=== PATIENT | female | born 1995 | race African-American/Black ===

== ENCOUNTER 2021-07-08 22:58 | Emergency (ER) | payer SELFPAY ==
[2021-07-09] MEDS ORDERED: Lidocaine Viscous Sol 2% 15 ml UD Cup ONE (00:08)
[2021-07-09] MEDS ORDERED: Milk Of Magnesia 30 ML UDCUP ONE (00:09)
[2021-07-09 00:11] LABS: #Eosinphils 0.1 10x3/uL (0.0-0.5); #Monocytes 0.6 10x3/uL (0.0-1.1); %Basophils 0.4 % (0.0-2.0); %Lymphocytes 39.1 % (18.0-47.0); %Monocytes 13.3 % (0.0-10.0); Hemoglobin 13.1 g/dL (12.0-15.5); Mean Corpuscular HGB CONC 33.7 g/dL (32.0-36.0); Mean Corpuscular Volume 92.2 fl (81.6-98.3); Mean Platelet Volume 9.9 fl (7.4-10.4); Platelet Count 208 10x3/uL (150-450); RBC Distribution Width 11.9 % (11.5-14.5); Red Blood Cell (RBC) Count 4.22 10x6/uL (3.90-5.03); White Blood Cell (WBC) Count 4.5 10x3/uL (3.5-10.5)
[2021-07-09] MEDS ORDERED: Ondansetron PF 4 MG/2 ML Vial ONE (00:12)
[2021-07-09] MEDS ORDERED: Pantoprazole 40 MG VIAL ONE (00:12)
[2021-07-09 00:21] LABS: BHCG - Serum Negative (NEGATIVE); Pregs Control Background? CLEAR/WHITE (CLR/WHITE); Pregs Control Bar Appear? YES (CONTROL BAR)
[2021-07-09 00:28] LABS: ALT (SGPT) 91 U/L (8-55); AST (SGOT) 73 U/L (5-34); Albumin 4.1 g/dL (3.5-5.0); Alkaline Phosphatase 47 U/L (40-110); Anion Gap 13 mmol/L (10-20); BUN (Urea Nitrogen) 8 mg/dL (7.0-18.7); Bilirubin, Total 0.2 mg/dL (0.2-1.2); Calc. Creatinine Clearance 0 mL/min (70-130); Calcium 9.1 mg/dL (7.8-10.44); Carbon Dioxide 23 mmol/L (22-29); Chloride 108 mmol/L (98-107); Globulin 3.5 g/dL (2.4-3.5); Glucose 98 mg/dL (70-105); Lipase 21 U/L (8-78); Potassium 3.4 mmol/L (3.5-5.1); Protein, Total 7.6 g/dL (6.0-8.3); Sodium 141 mmol/L (136-145)
[2021-07-09 01:20] LABS: Bilirubin Neg (Negative); Blood, Urine Negative (Negative); Clarity Slightly Cloudy (Clear); Glucose, Urine (Dipstick) Normal (Negative); Ketone, Urine Negative (Negative); Leukocyte 100 (Negative); Nitrite Negative (Negative); Protein, Urine (Dipstick) 15 mg/dl (Neg-Trace); Urobilinogen Normal mg/dL (Less than 2)
[2021-07-09 01:34] LABS: Mucous/LPF 3+ LPF (<2+)
[2021-07-09 01:43] LABS: Bacteria/HPF 1+ HPF (None Seen); RBC/HPF None Seen HPF (0-3)
== END 2021-07-09 01:31 | disposition home or self-care (01) ==
LOC: CSHERS 22:58
DX: K29.70 Gastritis, unspecified, without bleeding (principal); K76.0 Fatty (change of) liver, not elsewhere classified; K82.8 Other specified diseases of gallbladder; R11.2 Nausea with vomiting, unspecified
CPT/HCPCS: 76705; 80053; 81003; 81015; 83690; 84703; 85025; 96374; 96375; C9113; J2405

== ENCOUNTER 2021-07-09 03:14 | Emergency (ER) | payer SELFPAY ==
[2021-07-09] MEDS ORDERED: Ondansetron ODT 4 MG TAB ONE (03:40)
[2021-07-09] MEDS ORDERED: Sucralfate 1 GM/10 ML UDCUP ONE (03:41)
== END 2021-07-09 04:57 | disposition home or self-care (01) ==
LOC: CSHERS 03:14
DX: K29.70 Gastritis, unspecified, without bleeding (principal)
CPT/HCPCS: 99283; Q0162